=== PATIENT | male | born 1980 | race Caucasian/White ===

== ENCOUNTER 2018-01-09 11:15 | Emergency (ER) | payer OTHER ==
[2018-01-09 12:31] VITALS: BP 152/85
--- NOTE | 2018-01-09 12:54 | UC ---
Respiratory Complaint HPI - HPI Summary HPI Summary: Patient presents with a past medical history of HTN, DM< hypothryoidsim, and ADHD. He presents today with complaints of one day onset fatigue, malaise, generalized body aches, and persistent dry cough. He also complains of sore throat this morning, and reports it is better now. He reports T-mas of 99 at home. Denies chest or abdominal pain, nausea, vomiting, or diarrhea. - History of Current Complaint Chief Complaint: UCRespiratory Stated Complaint: COUGH Time Seen by Provider: 01/09/18 12:17 Hx Obtained From: Patient Onset/Duration: Sudden Onset, Lasting Hours Timing: Constant Severity Initially: Mild Severity Currently: Moderate Pain Intensity: 3 Character: Cough: Nonproductive Aggravating Factors: Nothing Alleviating Factors: Spontaneous Resolution Associated Signs And Symptoms: Positive: Fever - Risk Factors Pulmonary Embolism Risk Factors: Negative Cardiac Risk Factors: Negative Pseudomonas Risk Factors: Negative Tuberculosis Risk Factors: Negative - Allergies/Home Medications Allergies/Adverse Reactions: Allergies Allergy/AdvReac Type Severity Reaction Status Date / Time Penicillins Allergy Hives Verified 01/09/18 12:31 Sulfa (Sulfonamide Allergy Hives Verified 01/09/18 12:31 Antibiotics) Home Medications: Home Medications Amphetamine MIXED SALT TAB* [Adderall TAB*] 1 tab PO DAILY 01/09/18 [History Confirmed 01/09/18] Aspirin EC Low Dose* [Ecotrin EC Low Dose 81 MG*] 1 tab PO DAILY 01/09/18 [ History Confirmed 01/09/18] Levothyroxine TAB* [Synthroid 100 MCG TAB*] 1 tab PO DAILY 01/09/18 [History Confirmed 01/09/18] Lisdexamfetamine Dimesylate [Vyvanse] 1 tab PO DAILY 01/09/18 [History Confirmed 01/09/18] Lisinopril 1 tab PO DAILY 01/09/18 [History Confirmed 01/09/18] metFORMIN* [Glucophage 1000 MG TAB *] 1 tab PO BID 01/09/18 [History Confirmed 01/09/18] PMH/Surg Hx/FS Hx/Imm Hx Previously Healthy: Yes Endocrine History: Diabetes, Hypothyroidism Cardiovascular History: Hypertension - Surgical History Surgical History: None - Social History Occupation: Employed Full-time Lives: Alone Alcohol Use: Occasionally Substance Use Type: None Smoking Status (MU): Never Smoked Tobacco Review of Systems Constitutional: Fever, Chills, Fatigue Skin: Negative Eyes: Negative ENT: Negative Respiratory: Cough Cardiovascular: Negative Gastrointestinal: Negative Genitourinary: Negative Motor: Negative Neurovascular: Negative Musculoskeletal: Negative Neurological: Negative Psychological: Negative Is Patient Immunocompromised?: No All Other Systems Reviewed And Are Negative: Yes Physical Exam Triage Information Reviewed: Yes Appearance: Well-Appearing Vital Signs: Initial Vital Signs Temp 98.8 F 01/09/18 12:27 Pulse 82 01/09/18 12:27 Resp 18 01/09/18 12:27 BP 152/85 01/09/18 12:27 Pulse Ox 99 01/09/18 12:27 Vital Signs Reviewed: Yes Eye Exam: Normal ENT Exam: Normal ENT: Positive: Pharyngeal erythema Neck exam: Normal Neck: Positive: 1 Respiratory Exam: Normal Cardiovascular Exam: Normal Abdominal Exam: Normal Musculoskeletal Exam: Normal Skin Exam: Normal UC Diagnostic Evaluation - Laboratory O2 Sat by Pulse Oximetry: 99 Respiratory Course/Dx - Course Course Of Treatment: Patient presents with a past medical history of HTN, hypothyroidism, DM, ADHA. His vital signs are recorded as BP 152/85, T-98.8, P- 82, R-18, O2 sat 99% on RA. His rapid influnza was negative, and he was treated clinically for pharyngitis. - Differential Dx/Diagnosis Differential Diagnosis/HQI/PQRI: Influenza, Other - pharyngitis Provider Diagnoses: pharyngitis. influenza Discharge - Discharge Plan Condition: Stable Disposition: HOME Prescriptions: Azithromycin TAB* [Zithromax TAB (Z-OTONIEL) 250 mg #6 tabs] 2 tab PO .TODAY, THEN 1 DAILY #1 otoniel Oseltamivir CAP* [Tamiflu CAP*] 75 mg PO BID #10 cap Patient Education Materials: Pharyngitis (ED), Influenza (DC) Referrals: Starla Marion NP [Primary Care Provider] -
== END 2018-01-09 13:16 | disposition home or self-care (01) ==
LOC: UCEAST 11:15
DX: J11.1 Influenza due to unidentified influenza virus with other respiratory manifestations (principal); I10 Essential (primary) hypertension; E03.9 Hypothyroidism, unspecified; E11.9 Type 2 diabetes mellitus without complications; F90.9 Attention-deficit hyperactivity disorder, unspecified type; Z88.0 Allergy status to penicillin; Z88.2 Allergy status to sulfonamides; Z79.82 Long term (current) use of aspirin; Z79.84 Long term (current) use of oral hypoglycemic drugs
CPT/HCPCS: 87502; 99212; G0463

== ENCOUNTER 2018-04-28 14:08 | Emergency (ER) | payer OTHER ==
[2018-04-28 15:41] VITALS: BP 149/85
--- NOTE | 2018-04-28 19:49 | ED ---
Chris Campuzano Tiffany, scribed for Maximo Warner MD on 04/28/18 at 1508 . GI/ HPI - HPI Summary HPI Summary: 37 year old M [facility] complains of hemorrhoid since three days ago, worse since today. The patient rates the pain 8/10 in severity. Symptoms aggravated by nothing. Symptoms alleviated by nothing. Patient reports rectal pain, insomnia, lethargy. Patient denies bloody rectum. Pt seen by PCP yesterday , was prescribed cream, but no relief with cream. - History of Current Complaint Chief Complaint: EDGIBleed Time Seen by Provider: 04/28/18 14:46 Stated Complaint: RECTAL PAIN,GENERAL ILLNESS Hx Obtained From: Patient Onset/Duration: Started Days Ago - 3, Still Present, Worse Since - today Timing: Constant Current Severity: Severe Pain Intensity: 8 Associated Signs and Symptoms: Positive: Other: - Allergy/Home Medications Allergies/Adverse Reactions: Allergies Allergy/AdvReac Type Severity Reaction Status Date / Time Penicillins Allergy Hives Verified 04/28/18 14:15 Sulfa (Sulfonamide Allergy Hives Verified 04/28/18 14:15 Antibiotics) Home Medications: Home Medications Eszopiclone (NF) [Lunesta (NF)] 1.5 mg PO BEDTIME PRN 04/28/18 [History Confirmed 04/28/18] Lisdexamfetamine(NF) [Vyvanse(NF)] 40 mg PO DAILY 04/28/18 [History Confirmed ] Lisinopril TAB* [Prinivil TAB*] 20 mg PO DAILY 04/28/18 [History Confirmed 04/28] PMH/Surg Hx/FS Hx/Imm Hx Previously Healthy: No Endocrine/Hematology History: Reports: Hx Diabetes Cardiovascular History: Reports: Hx Hypertension Psychiatric History: Reports: Hx Attention Deficit Hyperactivity Disorder - Surgical History Surgery Procedure, Year, and Place: None Infectious Disease History: No Infectious Disease History: Denies: Traveled Outside the [place] in Last 30 Days - Family History Known Family History: Negative: Renal Disease - Social History Alcohol Use: Occasionally Hx Substance Use: No Substance Use Type: Reports: None Hx Tobacco Use: No Smoking Status (MU): Never Smoked Tobacco Review of Systems Positive: Other - hemorrhoid, rectal pain; NEGATIVE: bloody rectum Positive: Other - insomnia, lethargy All Other Systems Reviewed And Are Negative: Yes Physical Exam - Summary Physical Exam Summary: VITAL SIGNS: Reviewed. GENERAL: Patient is an obese male who is lying comfortable in the stretcher. Patient is not in any acute respiratory distress. HEAD AND FACE: No signs of trauma. No ecchymosis, hematomas or skull depressions. No sinus tenderness. EYES: PERRLA, EOMI x 2, No injected conjunctiva, no nystagmus. EARS: Hearing grossly intact. Ear canals and tympanic membranes are within normal limits. MOUTH: Oropharynx within normal limits. NECK: Supple, trachea is midline, no adenopathy, no JVD, no carotid bruit, no c- spine tenderness, neck with full ROM. CHEST: Symmetric, no tenderness at palpation LUNGS: Clear to auscultation bilaterally. No wheezing or crackles. CVS: Regular rate and rhythm, S1 and S2 present, no murmurs or gallops appreciated. ABDOMEN: Soft, non-tender. No signs of distention. No rebound no guarding, and no masses palpated. Bowel sounds are normal. RECTAL EXAM: Patient has a thrombosed hemorrhoid. EXTREMITIES: FROM in all major joints, no edema, no cyanosis or clubbing. NEURO: Alert and oriented x 3. No acute neurological deficits. Speech is normal and follows commands. SKIN: Dry and warm Triage Information Reviewed: Yes Vital Signs On Initial Exam: Initial Vitals Temp Pulse Resp BP Pulse Ox 98.4 F 83 16 157/112 98 04/28/18 14:11 04/28/18 14:11 04/28/18 14:11 04/28/18 14:11 04/28/18 14:11 Vital Signs Reviewed: Yes Diagnostics - Vital Signs Vital Signs Temp Pulse Resp BP Pulse Ox 04/28/18 14:11 98.4 F 83 16 157/112 98 - Laboratory Lab Statement: Any lab studies that have been ordered have been reviewed, and results considered in the medical decision making process. Re-Evaluation - Re-Evaluation First Eval Re-Evaluation Time: 15:29 Comment: Patient agrees to follow-up with Dr. Dunlap, surgery, tomorrow at his scheduled appointment. GIGU Course/Dx - Course Assessment/Plan: This patient is a 37-year-old male who presents to the emergency department with a chief complaint of having rectal pain. Patient reports that he went to see the primary care physician yesterday and she was diagnosed with a external hemorrhoid. He was prescribed Anusol and discharged home. Today the patient is complaining of increasing pain approximately 8-9 out of 10, therefore he decided to come to the ED. Denies any rectal bleed. Patient has no other complaints. I discussed the case with Dr. Dunlap from surgery and he recommends To be discharged home and he will come to his office tomorrow morning at 8:30 and will take care of the hemorrhoid. The patient agrees with the plan. I discussed all the findings and test results with the patient. Patient was instructed to return to the emergency room immediately if any of the symptoms return or worsens. Plan of care was discussed with the patient and understands and agrees. All questions were answered at patient satisfaction. There were no further complaints or concerns. Lung exam before discharge: CTA B/L. Good air exchange. No wheezing or crackles heard. CVS: S1 and S2 present. No murmurs appreciated. Patient is alert and oriented x 3. Patient is hemodynamically stable. Patient will be discharged home with follow up PCP in the next 2-3 days - Diagnoses Provider Diagnoses: Thrombosed hemorrhoids - Physician Notifications Discussed Care Of Patient With: Elijah Dunlap Time Discussed With Above Provider: 15:15 Instructed by Provider To: Other - Dr. Dunlap, surgery, agrees to see patient in his office tomorrow. Discharge - Sign-Out/Discharge Documenting (check all that apply): Discharge/Admit/Transfer - Discharge Plan Condition: Stable Disposition: HOME Patient Education Materials: Thrombosed Hemorrhoid (ED) Referrals: Starla Marion NP [Primary Care Provider] - Eliajh Dunlap MD [Medical Doctor] - 1 Day (You have an appointment scheduled with Dr. Dunlap tomorrow, 04/29/18 at 8:30 AM.) Additional Instructions: Follow up with Dr. Dunlap, surgery, at 8:30 AM tomorrow, 04/29/18. Return to the Emergency Department for any new or worsening symptoms. The documentation as recorded by the Chris salmeron Tiffany accurately reflects the service I personally performed and the decisions made by me, Maximo Warner MD.
== END 2018-04-28 15:40 | disposition home or self-care (01) ==
LOC: ED 14:08
DX: K64.5 Perianal venous thrombosis (principal); I10 Essential (primary) hypertension; Z79.899 Other long term (current) drug therapy; Z88.0 Allergy status to penicillin; Z88.2 Allergy status to sulfonamides
CPT/HCPCS: 99282